=== PATIENT | male | born 1945 | race Caucasian/White ===

== ENCOUNTER → 2017-07-15 | Outpatient (CLI) | payer MEDICARE ==
--- NOTE | 2017-07-15 10:03 | MR ---
EXAMINATION TYPE: MR shoulder LT wo con DATE OF EXAM: 07/15/2017 COMPARISON: Radiograph 06/13/2014 HISTORY: 72-year-old male with unspecified rotator cuff tear, pain x 4 years TECHNIQUE: Multiplanar, multisequence imaging of the left shoulder is performed without contrast. FINDINGS: There is marked tendinosis of the intracapsular long head biceps tendon with an interstitial tear. Thickening and heterogeneity of the subscapularis tendon with a finding suggesting partial tear of th e superior fibers. The majority remains intact. Moderate degenerative joint space narrowing with marginal spurring and capsular hypertrophy at the co mmon clavicular joint with some subchondral degenerative marrow signal change. There is slight bony c ontact onto the underlying cuff. Diffuse heterogeneity and thickening of the supraspinatus and infraspinatus tendons. There is some in trasubstance tearing measuring 9 mm AP dimension along the posterior supraspinatus tendon fibers just lateral to the acromion, proximal to the footprint. This may have minimal extension to the bursal campos rface. There is also bursal sided fraying noted. No high-grade partial or full-thickness tear is iden tified. The infraspinatus tendon appears intact. Bony irregularity at the greater tuberosity. No atrophy of the rotator cuff musculature. Mild to moderate effusion within the subacromial/subdeltoid bursa. Degenerative and blunted appearance to the superior and posterior labrum. Possible anterior labral te ar versus sublabral recess. No para labral cyst. Small inferior humeral head spur and mild cartilage thinning along the superior humeral head. There i s joint fluid collecting within the subcoracoid recess. No Hill-Sachs deformity or os acromiale. No suspicious bone marrow placement. IMPRESSION: 1. Diffuse rotator cuff tendinosis more markedly involving the supraspinatus tendon. 2. Bursal sided fraying of the supraspinatous tendon with areas of interstitial tearing of the elevators inspector ior supraspinatus tendon fibers. There may be minimal bursal sided extension of tear. No high-grade p artial or full-thickness tear is seen. 3. Moderate AC joint osteoarthrosis and mild to moderate subacromial/subdeltoid bursitis. 4. Mild degenerative changes of the glenohumeral joint. 5. Moderate to severe intracapsular long head biceps tendinosis with a large interstitial tear.
== END | disposition home or self-care (01) ==
LOC: RADMRIMAIN 07:22
PROVIDERS: ATTEND Internal Medicine Rheumatology
DX: M67.814 Other specified disorders of tendon, left shoulder (principal); M19.012 Primary osteoarthritis, left shoulder; M75.52 Bursitis of left shoulder

== ENCOUNTER → 2017-08-02 | Outpatient (CLI) | payer MEDICARE ==
--- NOTE | 2017-08-02 07:49 | MR ---
MRI CERVICAL SPINE: CLINICAL HISTORY: Cervical spine radiculopathy per order. Neck and shoulder pain for 4 years causing pain or weakness into both arms and fingers per patient. TECHNIQUE: Multiplanar, multisequence imaging of the cervical spine is performed without IV contrast. COMPARISON: None. FINDINGS: Sagittal images of the cervical spine show the craniocervical junction to appear within nor mal limits. The cervical and upper thoracic spinal cord is normal in course, caliber, and signal. V ertebral alignment is straightened. The vertebral body heights are normal. Multilevel disc desiccati on is seen with sparing of C2-C3 level. There is mild to moderate disc space narrowing at C4-C5 but m ost prominent at C5-C6 and C6-C7 levels. No suspicious posterior disc herniations are identified on s agittal images. The bone marrow signal intensity show some overall heterogeneity. There is fairly mod erate multilevel anterior spurring in the mid to lower cervical spine. Axial images at C2-C3 level shows uncovertebral facet degenerative changes contributing to mild left- sided neural foraminal narrowing. Right-sided neural foramen is patent. Axial images at C3-C4 level show more prominent uncovertebral facet degenerative changes causing adva nced right and moderate left-sided neural foraminal narrowing or axial image 48. There is small centr al disc protrusion mildly effacing anterior thecal sac on axial image 49. Axial images at C4-C5 level show mild uncovertebral facet degenerative changes bilaterally causing mi ld bilateral neural foraminal narrowing. Axial images at C5-C6 level are felt within normal limits. Axial images at C6-C7 level show left-sided spur disc complex causing mild left-sided neural foramina l narrowing on axial image 20. Right-sided neural foramen is patent. Spinal canal is preserved. Axial images at C7-T1 level are felt within normal limits. IMPRESSION: Straightening of the cervical spine with multilevel degenerative changes seen as detailed above. Most prominent neural foraminal narrowing is at the C3-C4 level due to bilateral uncovertebra l facet degenerative changes.
== END | disposition home or self-care (01) ==
LOC: RADMRIMAIN 06:53
PROVIDERS: ATTEND Internal Medicine Rheumatology
DX: M99.71 Connective tissue and disc stenosis of intervertebral foramina of cervical region (principal); M47.22 Other spondylosis with radiculopathy, cervical region
CPT/HCPCS: 72141

== ENCOUNTER 2024-08-16 06:48 | Day surgery (SDC) | payer MEDICARE ==
--- NOTE | 2024-08-15 23:04 | HP ---
HISTORY AND PHYSICAL Surgery is scheduled for 08/16/2024. HISTORY OF PRESENT ILLNESS: Ismael Ley is a 79-year-old gentleman seen with progressive left shoulder pain. We discussed options regarding treatment as well as left shoulder. He elected to proceed with left shoulder arthroscopy. Consent was obtained. Medical clearance was provided by Dr. Brady in the past. PAST MEDICAL HISTORY: Hypertension, [id number] diabetes, hyperlipidemia. PAST SURGICAL HISTORY: Herniorrhaphy, appendectomy, total hip arthroplasty. DAILY MEDICATIONS: 1. Aspirin. 2. Atorvastatin. 3. Metformin. 4. Zetia. ALLERGIES: None. SOCIAL HISTORY: He denies current tobacco use. PHYSICAL EVALUATION OF THE LEFT SHOULDER: Flexion is 90 degrees. Abduction is 70 degrees. External rotation is 30 degrees with pain and weakness. Tenderness along the anterolateral acromion, and bicipital groove area. He has tenderness along the rotator cuff insertion site and biceps tendon. He has impingement sign positive at 70 degrees. Cross-body adduction sign is positive. Drop-arm sign is positive. Distal neurovascular exam is intact. IMAGING STUDIES: Radiographs of the left shoulder revealed a type 2 acromion, acromioclavicular joint osteoarthritis. MRI of left shoulder revealed rotator cuff tear, acromioclavicular joint osteoarthritis and as well as impingement. IMPRESSION: 1. Left shoulder impingement with rotator cuff tear. 2. Left shoulder acromioclavicular joint osteoarthritis. 3. Left shoulder bicipital tendinitis. 4. Hyperlipidemia. 5. Noy-hssddfe-hqvoivotq diabetes. PLAN: Left shoulder arthroscopy with subacromial decompression, rotator cuff repair, Ricardo procedure, possible biceps tenodesis and debridement. MMODL / IJN: [id number] /
[2024-08-16] MEDS ORDERED: LIDOCAINE 1% (10MG/ML) FOR IV START INTRADERMA PRN (06:56)
[2024-08-16] MEDS ORDERED: HYDROmorphone 0.5 MG/0.5 ML SYRINGE IVP PRN (06:56)
[2024-08-16] MEDS ORDERED: droPERidol 5 MG/2 ML VIAL IVP ONE (06:56)
[2024-08-16 07:42] LABS: Glucose,Whole Blood 145 mg/dL (70-110)
[2024-08-16] MEDS: LACTATED RINGERS 1,000 ML IV SCH (07:44)
[2024-08-16] MEDS: DEXAMETHASONE SOD PHOSPHATE 4 MG/ML 1 ML VIAL IV ONE (07:45)
[2024-08-16] MEDS: ONDANSETRON 4 MG/2 ML VIAL IVP ONE (07:45)
[2024-08-16] MEDS: IV FLUID CONTINUATION 1,000 ML IV ONE (07:47)
[2024-08-16] MEDS: MIDAZOLAM 2 MG/2 ML VIAL IV ONE (07:48)
--- NOTE | 2024-08-16 08:17 | P.ANPRN ---
Procedure Note - Anesthesia - Nerve Block Performed Left Interscalene Single Time Out Performed: Yes Date of Procedure: 08/16/24 Procedure Start Time: 07:48 Procedure Stop Time: 07:53 Location of Patient: PreOp Indication: Acute Post-Operative Pain, Analgesia, Requested by Surgeon Sedation Type: Sedate with meaningful contact maintained Preparation: Sterile Prep Position: Sitting Catheter: None Needle Types: Pajunk Needle Gauge: 21 Ultrasound used to visualize needle placement: Yes Ultrasound used to observe medication spread: Yes Injectate: 0.5% Ropivacaine (see comment for volume) (Ropiv 20 nl+Decadron 4mg. Nerve stimulation at 0.5 MA. AttemptX1.) Blood Aspirated: No Pain Paresthesia on Injection Noted: No Resistance on Injection: Normal Image Stored and Saved: Yes Events: Uneventful and Well Tolerated
[2024-08-16] MEDS ORDERED: SUCCINYLCHOLINE CHLORIDE 200 MG/10 ML VIAL IV ONE (08:23)
[2024-08-16] MEDS ORDERED: SODIUM CHLORIDE 0.9% (PF) 10 ML VIAL ONE (08:23)
[2024-08-16] MEDS ORDERED: LIDOCAINE 1% INJ 10MG/ML (20 ML MDV) ONE (08:23)
[2024-08-16] MEDS ORDERED: PHENYLEPHRINE 10 MG/ML VIAL ONE (08:23)
[2024-08-16] MEDS ORDERED: ROPIVACAINE 5 MG/ML 30 ML VIAL ONE (08:23)
[2024-08-16] MEDS ORDERED: fentaNYL (PF) 50 MCG/ML 2 ML AMP ONE (08:23)
[2024-08-16] MEDS ORDERED: GLYCOPYRROLATE 0.2 MG/ML 2 ML VIAL ONE (08:23)
[2024-08-16] MEDS ORDERED: ePHEDrine 50 MG/ML 1 ML VIAL ONE (08:23)
[2024-08-16] MEDS ORDERED: PROPOFOL 10 MG/ML 20 ML VIAL IV ONE (08:23)
[2024-08-16 10:16] VITALS: TEMP 97.5
--- NOTE | 2024-08-16 10:17 | P.OP ---
Date of Procedure: 08/16/24 Preoperative Diagnosis: Left shoulder impingement Postoperative Diagnosis: 1. Left shoulder rotator cuff tear 2. Left shoulder impingement 3. Left shoulder bicipital tendinitis/partial tear 4. Left shoulder acromioclavicular joint osteoarthritis 5. Left shoulder superficial superior labral tear Procedure(s) Performed: 1. Left shoulder arthroscopic rotator cuff repair 2. Left shoulder arthroscopic subacromial decompression 3. Left shoulder arthroscopic biceps tenodesis 4. Left shoulder arthroscopic Ricardo procedure 5. Left shoulder arthroscopic debridement superficial labral tear Implants: 2Arthrex 4.75 swivel lock anchors Anesthesia: GETA, regional (Interscalene block) Surgeon: Stewart Fernández Inner Tube Inserter #1: Adi Jimenes Estimated Blood Loss (ml): 10 Pathology: none sent Condition: stable Disposition: PACU Indications for Procedure: 79-year-old gentleman seen with progressive left shoulder pain. After having treatment options discussed, he elected to proceed with arthroscopy. Operative Findings: See description of procedure Description of Procedure: Patient underwent an interscalene block by department of anesthesia. The patient was then taken to the operative suite. The patient underwent a general anesthetic by the department of anesthesia. The patient was placed into a lateral position and secured. There was appropriate padding of the bony prominence. Left shoulder was then prepped and draped in normal sterile orthopedic fashion. We placed the extremity in 10 pounds of longitudinal traction. A posterior incision was now made for a posterior working portal site. The trocar and cannula were inserted into the glenohumeral joint. Arthroscopy was initiated. Spinal needle was now inserted anteriorly, to ascertain the anterior working portal site. An incision was now made in that area, a trocar was inserted followed by a probe. There was superficial tearing of the superior labrum. There were grade I chondromalacia changes of the humeral head without tears. There was hyperemia and partial tearing long head biceps tendon. I used a motorized shaver and debrided that superficial labral tear again on the stable labral tissue. I decided to proceed with arthroscopic biceps tenodesis. I reduced a cannula through the anterior portal site. I passed a loop and tack type stitch to the biceps tendon. I now released the biceps tendon from the superior labral anchor. With the assistance of a Sebas XIAO punch hole at the interval area for insertion of an anchor. The suture limb was passed through the eyelet of an Arthrex 4.75 swivel lock anchor. I placed the eyelet into the preplanned hole and held in position while Sebas XIAO tensioned the suture and deployed the anchor with good fixation. The residual suture limb was clipped. There was a stable appearing biceps tenodesis present. Instruments were now removed from the glenohumeral joint. Utilizing the posterior working portal site, the trocar and cannula were inserted into the subacromial space. Arthroscopy initiated. I made an incision 2 fingerbreadths lateral to the acromion. I introduced my trocar followed by my ArthroCare ablator. I now began ablating thick subacromial bursal tissue, which exposed the undersurface of the anterior acromion. There was diminished subacromial space. There was a very prominent anterior acromion. A motorized bur was introduced and a subacromial decompression was performed. I also excised some osteophytes off the inferior aspect of the distal clavicle. The AC joint was visualized and noted to be fairly arthritic. The motorized bur was introduced in the anterior portal site and a Ricardo procedure was performed without difficulty removing 8 mm of bone off the distal clavicle, decompressing the AC joint nicely. I turned my attention to the rotator cuff. There was a 1.5 cm rotator cuff tear. I debrided the margins getting down to stable tendon tissue. I abraded the footprint with a motorized bur. With the assistance of Sebas XIAO I passed 3 everted mattress sutures through good bites of rotator cuff tendon. I punched a hole in the footprint area for insertion of an anchor. All 6 limbs of suture were passed through the eyelet of an Arthrex 4.75 swivel lock anchor. I placed the eyelet into the prepunched a hole. I held in position while Sebas XIAO tensioned all the suture limbs and deployed the anchor with good fixation noted. All residual suture limbs were now clipped. We had good compression of the tendon along the entire footprint. Instruments now removed from the portal sites. All portal sites were approximated with nylon suture. Sterile dressings were applied followed by a shoulder immobilizer. Adi XIAO assisted in this complex case. The patient was awakened, transferred to a bed, and taken to recovery in stable condition.
[2024-08-16 11:18] VITALS: RESP 20
[2024-08-16 11:44] VITALS: BP 111/66; PULSE 70
== END 2024-08-16 12:10 | disposition home or self-care (01) ==
LOC: OR 06:48
PROVIDERS: ATTEND Orthopaedic Surgery
DX: S46.012A Strain of muscle(s) and tendon(s) of the rotator cuff of left shoulder, initial encounter (principal); M19.012 Primary osteoarthritis, left shoulder; M75.42 Impingement syndrome of left shoulder; E11.9 Type 2 diabetes mellitus without complications; E78.5 Hyperlipidemia, unspecified; G89.18 Other acute postprocedural pain; I10 Essential (primary) hypertension; M75.22 Bicipital tendinitis, left shoulder; Z79.84 Long term (current) use of oral hypoglycemic drugs; Z90.49 Acquired absence of other specified parts of digestive tract; Z79.899 Other long term (current) drug therapy; X58.XXXA Exposure to other specified factors, initial encounter
CPT/HCPCS: 64415; 29824; 29826; 29827; 29828; C1713 ×3; J2250; J0330; J1100; J0690; J2405; J2003; J3010; J2795; J2704; J2371; J1596